=== PATIENT | male | born 1990 | race Caucasian/White ===

== ENCOUNTER 2020-06-03 06:45 | Emergency (ER) | payer OTHER ==
[2020-06-03 08:34] VITALS: BP 134/80
--- NOTE | 2020-06-06 09:44 | NUR ---
Notified patient of positive Covid results. Patient states he is "feeling fine" Advised patient to quarantine until contacted by the [facility]. Advised patient to return to the Ed with any difficulty breathing. Patient verbalized underestanding.
== END 2020-06-03 08:36 | disposition home or self-care (01) | DRG 179 ==
LOC: ED 06:45
DX: U07.1 COVID-19 (principal); R43.8 Other disturbances of smell and taste